=== PATIENT | female | born 1995 | race Caucasian/White ===

== ENCOUNTER 2016-11-28 20:40 | Emergency (ER) | payer OTHER ==
[~2016-11-28 20:40] MED LIST: HYDRO2.5%T TOP; MOME0.05 TOP
[2016-11-28 20:41] VITALS: BP 122/81; PULSE 63; RESP 14; TEMP 98.9; O2SAT 97
[2016-11-28] MEDS ORDERED: DICL75TA PO (21:04)
[2016-11-28] MEDS ORDERED: CYCL1TAB29 PO (21:04)
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
== END 2016-11-28 21:33 | disposition home or self-care (01) ==
LOC: NEPK 20:40
DX: S16.1XXA Strain of muscle, fascia and tendon at neck level, initial encounter (principal); V43.52XA Car driver injured in collision with other type car in traffic accident, initial encounter; Y93.89 Activity, other specified; Y92.481 Parking lot as the place of occurrence of the external cause; Y99.8 Other external cause status
CPT/HCPCS: 99284